=== PATIENT | male | born 1935 | race Caucasian/White ===

== ENCOUNTER 2016-09-27 18:26 | Inpatient (IN) | payer MEDICARE, BC ==
[~2016-09-27] VITALS: Ht 177.8 cm; Wt 140.6 kg
[2016-09-27] MEDS ORDERED: ALLOPURINOL100 MG PO (18:29)
[2016-09-27] MEDS ORDERED: ASPIRIN CHEWABL81 MG PO (18:30)
[2016-09-27] MEDS ORDERED: LANTUS100 U/ML SQ (18:31)
[2016-09-27] MEDS ORDERED: HUMALOG100 UNIT/1 SQ (18:32)
[2016-09-27] MEDS ORDERED: ATORVASTATIN CA40 M1 PO (18:33)
[2016-09-27] MEDS ORDERED: LISINOPRIL10 M1 PO (18:33)
[2016-09-27 20:14] VITALS: BP 161/87
[2016-09-28 07:28] LABS: BASO # 0.1 10*3/uL (0.0-0.1); BASO % 1.4 % (0.0-1.0); EOS # 0.3 10*3/uL (0.0-0.4); EOS % 3.7 % (1.0-4.0); HEMATOCRIT 46.7 % (42.0-52.0); HEMOGLOBIN 15.6 g/dl (14.0-18.0); LYMPH % 27.5 % (27.0-41.0); MEAN CELL VOLUME 91.2 fl (80.0-94.0); MEAN CORPUSCULAR HGB 30.5 pg (27.0-31.0); MEAN CORPUSCULAR HGB CONC 33.4 g/dl (33.0-37.0); MEAN PLATELET VOLUME 11.1 fl (9.6-12.3); MONO # 0.7 10*3/uL (0.1-1.0); MONO % 9.5 % (3.0-9.0); NEUT # 4.3 10*3/uL (2.3-7.9); NEUT % 57.6 % (47.0-73.0); PLATELET COUNT AUTOMATED 224 10*3/uL (130-400); RED BLOOD COUNT 5.12 10*6/uL (4.50-5.90); RED CELL DISTRI WIDTH 12.9 % (0-14.5); WHITE BLOOD COUNT 7.4 10*3/uL (4.8-10.8)
[2016-09-28 07:44] VITALS: BP 142/66
[2016-09-28 07:46] LABS: ALBUMIN 3.6 gm/dl (3.1-4.5); BILIRUBIN, TOTAL 0.8 mg/dl (0.2-1.0); POTASSIUM 4.3 mmol/L (3.5-5.1); TOTAL PROTEIN 7.2 gm/dL (6.4-8.2)
[2016-09-28 07:50] LABS: HEMOGLOBIN A1c 10.3 % (4.8-5.6)
[2016-09-28 07:53] LABS: THYROID STIM HORMONE (HS) 1.79 uIU/ml (0.358-4.75)
[2016-09-28 20:58] VITALS: BP 121/70
[2016-09-29 07:52] LABS: POTASSIUM 4.5 mmol/L (3.5-5.1)
[2016-09-29 08:52] VITALS: BP 138/70
[2016-09-29 20:00] VITALS: BP 134/70
[2016-09-30 08:11] VITALS: BP 131/72
[2016-09-30] MEDS ORDERED: RIVASTIGMINE1 EACH T (08:54)
[2016-09-30] MEDS ORDERED: DIVALPROEX SOD250 MG PO (08:54)
[2016-09-30] MEDS ORDERED: MIRTAZAPINE30 M2 PO (08:54)
== END 2016-09-30 13:59 | disposition home or self-care (01) | DRG 885 ==
LOC: 3N 18:26
PROVIDERS: Internal Medicine; Psychiatry & Neurology Psychiatry
DX: F33.9 Major depressive disorder, recurrent, unspecified (principal); E11.65 Type 2 diabetes mellitus with hyperglycemia; F23 Brief psychotic disorder; I10 Essential (primary) hypertension; Z89.022 Acquired absence of left finger(s); Z96.651 Presence of right artificial knee joint; E78.00 Pure hypercholesterolemia, unspecified; Z98.42 Cataract extraction status, left eye; Z98.41 Cataract extraction status, right eye; Z87.891 Personal history of nicotine dependence; Z80.9 Family history of malignant neoplasm, unspecified; Z88.2 Allergy status to sulfonamides; Z79.82 Long term (current) use of aspirin; Z79.4 Long term (current) use of insulin; M1A.09X0 Idiopathic chronic gout, multiple sites, without tophus (tophi)